=== PATIENT | male | born 1995 | race Caucasian/White ===

== ENCOUNTER 2016-12-03 15:46 | Emergency (ER) | payer BC ==
[2016-12-03] MEDS ORDERED: ONDANSETRON 4 MG ODT STARTER PACK 2 TAB BTL PO STA (16:50)
[2016-12-03] MEDS ORDERED: ONDANSETRON ODT 4 MG TAB PO STA (16:50)
--- NOTE | 2016-12-03 16:54 | ED ---
General Adult HPI - General Chief complaint: Nausea/Vomiting/Diarrhea Stated complaint: Vomiting/Headache Time Seen by Provider: 12/03/16 16:00 Source: patient, RN notes reviewed Mode of arrival: ambulatory Limitations: no limitations - History of Present Illness Initial comments: This is a 21-year-old male who presents to the emergency department stating that he has been vomiting for the last 2 days. Patient states it is made it impossible for him to work and his employer sent him home both days. Patient denies any diarrhea per patient denies any fever chills per patient denies any abdominal pain. Patient denies any chest pain difficulty breathing or shortness of breath per patient denies palpitations. Patient states she does have a mild headache on the right side but that seems to come and go. Patient denies any neurologic deficit. Patient denies numbness weakness. Patient denies being around anyone with similar symptoms. - Related Data Previous Rx's Medication Instructions Recorded Ondansetron [Zofran] 4 mg PO Q6H PRN #5 tab 12/03/16 Allergies Allergy/AdvReac Type Severity Reaction Status Date / Time No Known Allergies Allergy Verified 12/03/16 16:11 Review of Systems ROS Statement: Those systems with pertinent positive or pertinent negative responses have been documented in the HPI. ROS Other: All systems not noted in ROS Statement are negative. Past Medical History Past Medical History: No Reported History History of Any Multi-Drug Resistant Organisms: None Reported Additional Past Surgical History / Comment(s): right eye surgery Past Psychological History: Depression Smoking Status: Current every day smoker Past Alcohol Use History: Occasional Past Drug Use History: None Reported General Exam - General Exam Comments Initial Comments: GENERAL: Patient is well-developed and well-nourished. Patient is nontoxic and well- hydrated and is in mild distress. ENT: Neck is soft and supple. No significant lymphadenopathy is noted. Oropharynx is clear. Moist mucous membranes. Neck has full range of motion without eliciting any pain. EYES: The sclera were anicteric and conjunctiva were pink and moist. Extraocular movements were intact and pupils were equal round and reactive to light. Eyelids were unremarkable. PULMONARY: Unlabored respirations. Good breath sounds bilaterally. No audible rales rhonchi or wheezing was noted. CARDIOVASCULAR: Patient is a regular rate and rhythm. ABDOMEN: Soft and nontender with normal bowel sounds. No palpable organomegaly was noted. There is no palpable pulsatile mass. SKIN: Skin is clear with no lesions or rashes and otherwise unremarkable. NEUROLOGIC: Patient is alert and oriented x3. Cranial nerves II through XII are grossly intact. Motor and sensory are also intact. Normal speech, volume and content. Symmetrical smile. MUSCULOSKELETAL: Normal extremities with adequate strength and full range of motion. No lower extremity swelling or edema. No calf tenderness. LYMPHATICS: No significant lymphadenopathy is noted PSYCHIATRIC: Normal psychiatric evaluation. Limitations: no limitations Course Vital Signs 12/03/16 15:58 Temperature 98.4 F Pulse Rate 86 Respiratory 17 Rate Blood Pressure 135/80 O2 Sat by Pulse 99 Oximetry Medical Decision Making - Lab Data Lab Results 12/03/16 Range/Units 16:07 Influenza Type A RNA Not Detected (Not Detectd) Influenza Type B (PCR) Not Detected (Not Detectd) Disposition Clinical Impression: Acute vomiting Disposition: HOME SELF-CARE Instructions: Acute Nausea and Vomiting (ED) Prescriptions: Ondansetron [Zofran] 4 mg PO Q6H PRN #5 tab PRN Reason: Nausea And Vomiting Time of Disposition: 16:53
[2016-12-03 17:15] VITALS: BP 122/60; PULSE 74; RESP 18; TEMP 98.1
== END 2016-12-03 17:16 | disposition home or self-care (01) ==
LOC: EC 15:46
DX: R11.2 Nausea with vomiting, unspecified (principal); R51 Headache; F17.200 Nicotine dependence, unspecified, uncomplicated
CPT/HCPCS: 99284; 87502; S0119

== ENCOUNTER 2018-12-14 23:44 | Emergency (ER) | payer BC ==
[2018-12-14 23:58] VITALS: BP 104/64; PULSE 77; RESP 18; TEMP 98
[2018-12-15] MEDS ORDERED: PENICILLIN VK 500MG STARTER 4 TAB BTL PO STA (01:42)
[2018-12-15] MEDS ORDERED: ACET/COD 300 MG/30 MG STARTER PACK 6 TAB BTL PO STA (01:42)
[2018-12-15] MEDS ORDERED: IBUPROFEN 600 MG STARTER PACK 4 TAB BTL PO STA (01:42)
--- NOTE | 2018-12-15 01:44 | ED ---
ENT HPI - General Chief complaint: Dental/Oral Stated complaint: Facial Swelling Time Seen by Provider: 12/15/18 01:03 Source: patient Mode of arrival: ambulatory Limitations: no limitations - History of Present Illness Initial comments: 23-year-old male patient presents to the emergency department today for evaluation of right upper dental pain and facial swelling. Patient states that symptoms started on Friday. Patient states he does have multiple broken teeth to the area. Patient states that the swelling has been steadily worsening. Denies any fevers or chills with this. Denies any nausea, vomiting , trismus, or difficulty swallowing. Patient states he has not made an appointment with a dentist at this time. States he does have dental insurance. Denies taking any medication for his symptoms. Patient denies any recent rash , shortness breath, chest pain, abdominal pain, diarrhea, constipation, back pain, numbness, tingling, dizziness, weakness, hematuria, dysuria, urinary urgency, urinary frequency, headache, visual changes, or any other complaints. - Related Data Previous Rx's Medication Instructions Recorded Ondansetron [Zofran] 4 mg PO Q6H PRN #5 tab 12/03/16 Ibuprofen [Motrin] 600 mg PO Q8HR PRN #30 tab 12/15/18 Penicillin V Potassium [Pen Vee K] 500 mg PO Q6H #40 tablet 12/15/18 Allergies Allergy/AdvReac Type Severity Reaction Status Date / Time No Known Allergies Allergy Verified 12/14/18 23:58 Review of Systems ROS Statement: Those systems with pertinent positive or pertinent negative responses have been documented in the HPI. ROS Other: All systems not noted in ROS Statement are negative. Past Medical History Past Medical History: No Reported History History of Any Multi-Drug Resistant Organisms: None Reported Additional Past Surgical History / Comment(s): right eye surgery, Past Psychological History: Depression Smoking Status: Current every day smoker Past Alcohol Use History: Occasional Past Drug Use History: None Reported General Exam Limitations: no limitations General appearance: alert, in no apparent distress, other (This is a well- developed, well-nourished adult male patient in no acute distress. Vital signs upon presentation are temperature 98.2F, pulse 77, respirations 18, blood pressure 104/64, pulse ox 100% on room air.) Eye exam: Present: normal appearance, PERRL, EOMI. Absent: scleral icterus, conjunctival injection, periorbital swelling ENT exam: Present: mucous membranes moist, other (Very poor dentition, multiple dental caries. Right molars are fractured down to the gingival line. There is gingival erythema and hyperplasia. No evidence of drainable abscess.). Absent : normal exam, normal oropharynx Respiratory exam: Present: normal lung sounds bilaterally. Absent: respiratory distress, wheezes, rales, rhonchi, stridor Cardiovascular Exam: Present: regular rate, normal rhythm, normal heart sounds. Absent: systolic murmur, diastolic murmur, rubs, gallop, clicks Neurological exam: Present: alert, oriented X3, CN II-XII intact Psychiatric exam: Present: normal affect, normal mood Skin exam: Present: warm, dry, intact, normal color. Absent: rash Course Vital Signs 12/14/18 23:54 Temperature 98.0 F Pulse Rate 77 Respiratory 18 Rate Blood Pressure 104/64 O2 Sat by Pulse 100 Oximetry Medical Decision Making - Medical Decision Making 23-year-old male patient presented to the emergency department today for evaluation of right upper dental pain and right-sided facial swelling. There is no evidence of cellulitis. Swelling does not reach the orbital region. Patient symptoms are consistent with dental infection. We'll start pen VK. He' ll be given medication for pain as well. Avoid discharged home to follow-up with dentistry as soon as possible. Return parameters were discussed in detail. He verbalizes understanding and agrees with this plan. Disposition Clinical Impression: Dental infection Disposition: HOME SELF-CARE Condition: Good Instructions (If sedation given, give patient instructions): Dental Abscess (ED ), Dental Caries (ED) Additional Instructions: Complete medications as directed. Follow-up with dentistry as soon as possible. Call your insurance company tomorrow to see which dentist in the area accept your insurance. Return to the emergency department immediately for any new, worsening, or concerning symptoms Prescriptions: Ibuprofen [Motrin] 600 mg PO Q8HR PRN #30 tab PRN Reason: Pain Penicillin V Potassium [Pen Vee K] 500 mg PO Q6H #40 tablet Is patient prescribed a controlled substance at d/c from ED?: No Referrals: None,Stated [Primary Care Provider] - 1-2 days Time of Disposition: 01:44
== END 2018-12-15 02:06 | disposition home or self-care (01) ==
LOC: EC 23:44
DX: K04.7 Periapical abscess without sinus (principal); F17.200 Nicotine dependence, unspecified, uncomplicated
CPT/HCPCS: 99283

== ENCOUNTER 2022-01-12 13:00 | Emergency (ER) | payer BC ==
[2022-01-12 13:55] VITALS: BP 133/81; PULSE 90; RESP 18; TEMP 97.6
[2022-01-12] MEDS ORDERED: ACET/COD 300 MG/30 MG STARTER PACK 6 TAB BTL PO STA (14:18)
--- NOTE | 2022-01-12 14:19 | ED ---
ENT HPI - General Chief complaint: Dental/Oral Stated complaint: dental pain/possible infection Time Seen by Provider: 01/12/22 13:58 Source: patient, RN notes reviewed Mode of arrival: ambulatory Limitations: no limitations - History of Present Illness Initial comments: This is a 26-year-old male who presents to the Department with chief complaint of dental pain. Patient states that this started days ago states he has right- sided dental pain with swallowing. Offers shows mild swelling states he has been told he needs all his teeth. Patient was told he needs all of his teeth pulled - Related Data Previous Rx's Medication Instructions Recorded Ondansetron [Zofran] 4 mg PO Q6H PRN #5 tab 12/03/16 Ibuprofen [Motrin] 600 mg PO Q8HR PRN #30 tab 12/15/18 Penicillin V Potassium [Pen Vee K] 500 mg PO Q6H #40 tablet 12/15/18 Penicillin V Potassium [Pen Vee K] 500 mg PO QID #40 tablet 01/12/22 Allergies Allergy/AdvReac Type Severity Reaction Status Date / Time No Known Allergies Allergy Verified 01/12/22 13:54 Review of Systems ROS Statement: Those systems with pertinent positive or pertinent negative responses have been documented in the HPI. ROS Other: All systems not noted in ROS Statement are negative. Past Medical History Past Medical History: No Reported History History of Any Multi-Drug Resistant Organisms: None Reported Additional Past Surgical History / Comment(s): right eye surgery, Past Psychological History: Depression Smoking Status: Vaper Past Alcohol Use History: Occasional Past Drug Use History: None Reported General Exam Limitations: no limitations General appearance: alert, in no apparent distress Head exam: Present: atraumatic, normocephalic, normal inspection Eye exam: Present: normal appearance, PERRL, EOMI. Absent: scleral icterus, conjunctival injection, periorbital swelling ENT exam: Present: mucous membranes moist. Absent: normal oropharynx (poor dentition, edentulous, no drainable abscess.) Neck exam: Present: normal inspection. Absent: tenderness, meningismus, lymphadenopathy Respiratory exam: Present: normal lung sounds bilaterally. Absent: respiratory distress, wheezes, rales, rhonchi, stridor Cardiovascular Exam: Present: regular rate, normal rhythm, normal heart sounds. Absent: systolic murmur, diastolic murmur, rubs, gallop, clicks Course Vital Signs 01/12/22 13:51 Temperature 97.6 F Pulse Rate 90 Respiratory 18 Rate Blood Pressure 133/81 O2 Sat by Pulse 98 Oximetry Medical Decision Making - Medical Decision Making Patient has probable underlying dental abscess was started on oral antibiotics will follow up with dentist and return for any worsening changes symptoms. Disposition Clinical Impression: Dental abscess, Toothache Disposition: HOME SELF-CARE Condition: Stable Instructions (If sedation given, give patient instructions): Dental Abscess (ED), Toothache (ED) Additional Instructions: Please return to the emergency department for any worsening symptoms or any other concern Prescriptions: Penicillin V Potassium [Pen Vee K] 500 mg PO QID #40 tablet Is patient prescribed a controlled substance at d/c from ED?: No Referrals: None,Stated [Primary Care Provider] - 1-2 days Time of Disposition: 14:18
== END 2022-01-12 15:01 | disposition home or self-care (01) ==
LOC: EC 13:00
DX: K04.7 Periapical abscess without sinus (principal); K08.89 Other specified disorders of teeth and supporting structures; F17.200 Nicotine dependence, unspecified, uncomplicated
CPT/HCPCS: 99282